=== PATIENT | female | born 1935 | race Caucasian/White ===

== ENCOUNTER 2018-08-28 14:20 | Inpatient (IN) | payer MEDICARE, OTHER ==
--- NOTE | 2018-08-28 14:55 | ED Physician Chart ---
ED Chief Complaint/HPI - Patient Information Date Seen:: 08/28/18 Time Seen:: 14:30 Chief Complaint:: Agitation History of Present Illness:: onset x 2 days of agitation and hostile behavior; no report of trauma, SIs, H/As , S/T, neck pain, cough, C/P, SOB, Abd. Pain, A/N/V/D/C, fever, chills, or urinary s/s Allergies:: Allergies Allergy/AdvReac Type Severity Reaction Status Date / Time iodine Allergy Verified 08/28/18 14:35 Vitals:: Vital Signs - 8 hr 08/28/18 14:36 HR 58 RR 18 BP 125/72 O2 Sat % 96 Historian:: Patient, EMS Review:: Nurse's Note Reviewed, Old Chart Reviewed, EMS run form Reviewed ED Review of Systems - Review of Systems General/Constitutional: No fever, No chills, No weight loss, No weakness, No diaphoresis, No edema, No loss of appetite Skin: No skin lesions, No rash, No bruising Head: No headache, No light-headedness Eyes: No loss of vision, No pain, No diplopia ENT: No earache, No nasal drainage, No sore throat, No tinnitus Neck: No neck pain, No swelling, No thyromegaly, No stiffness, No mass noted Cardio Vascular: No chest pain, No palpitations, No PND, No orthopnea, No edema Pulmonary: No SOB, No cough, No sputum, No wheezing GI: No nausea, No vomiting, No diarrhea, No pain, No melena, No hematochezia, No constipation, No hematemesis G/U: No dysuria, No frequency, No hematuria, No nacturia Warp Preparer: No vaginal discharge, No abnormal vaginal bleed, No contraction Musculoskeletal: No bone or joint pain, No back pain, No muscle pain Endocrine: No polyuria, No polydipsia Psychiatric: Prior psych history, No depression, Anxiety, No suicidal ideation, No homicidal ideation, Auditory hallucination, No visual hallucination Hematopoietic: No bruising, No lymphadenopathy Allergic/Immuno: No urticaria, No angioedema Neurological: No syncope, No focal symptoms, No weakness, No paresthesia, No headache, No seizure, No dizziness, Confusion, No vertigo ED Past Medical History - Past Medical History Obtainable: Yes Past Medical History: HTN, Dyslipidemia, Dementia Family History: HTN Social History: Non Smoker, No Alcohol, No Drug Use, Single, Care Facility Surgical History: None Psychiatricy History: Schizophrenia, Dementia Medication: Reviewed Family Medical History - Family Member Mother History Unknown: Yes ED Physical Exam - Physical Examination General/Constitutional: Awake, Well-developed, well-nourished, Alert, No distress, GCS 15, Non-toxic appearing, Ambulatory Head: Atraumatic Eyes: Lids, conjuctiva normal, PERRL, EOMI Skin: Nl inspection, No rash, No skin lesions, No ecchymosis, Well hydrated, No lymphadenopathy ENMT: External ears, nose nl, TM canals nl, Nasal exam nl, Lips, teeth, gums nl , Oropharynx nl, Tonsils nl Neck: Nontender, Full ROM w/o pain, No JVD, No nuchal rigidity, No bruit, No mass, No stridor Respiratory: Nl effort/Exclusion, Clear to Auscultation, No Wheeze/Rhonchi/Rales Cardio Vascular: RRR, No murmur, gallop, rubs, NL S1 S2, Carotid/Femoral/Distal pulses equal bilaterally GI: No tenderness/rebounding/guarding, No organomegaly, No hernia, Normal BS's, Nondistended, No mass/bruits, No McBurney tenderness : No CVA tenderness Extremities: No tenderness or effusion, Full ROM, normal strength in all extremities, No edema, Normal digits & nails Neuro/Psych: Alert/oriented, DTR's symmetric, Normal sensory exam, Normal motor strength, Judgement/insight normal, Mood normal, Normal gait, No focal deficits Other Neuro/Psych comments:: + Psychomotor Agitation; no SIs; Mood/Affect: Labile Misc: Normal back, No paraspinal tenderness ED Labs/Radiology/EKG Results - Lab Results Comments:: Reviewed - EKG Interpretations EKG Time:: 14:49 Rate & Rhythm: 64; NSR Comments:: LBBB; non-specific st-t changes ED Septic Shock - . Is Septic Shock (SBP<90, OR Lactate>4 mmol\L) present?: No - <6hrs of presentation: Vital Signs: Vital Signs - 8 hr 08/28/18 14:36 HR 58 RR 18 BP 125/72 O2 Sat % 96 ED Reassessment (Disposition) - Reassessment Reassessment Condition:: Improved - Diagnosis Diagnosis:: Agitation; Medical Clearance; UTI; Psychosis; Bipolar Disorder - Aftercare/Follow up Instructions Aftercare/Follow-Up Instructions:: Counseled pt regarding lab results/diagnosis & need follow up, Counseled pt & family regarding lab results/diagnosis & need follow up - Patient Disposition Discharge/Transfer:: Acute Care w/in this hosp Admitted to:: [facility] Condition at Disposition:: Stable, Improved
[2018-08-28 15:07] LABS: % EOSINOPHILS 5.1 % (0.0-5.0); % LYMPHOCYTES 31.2 % (20.0-50.0); % NEUTROPHILS 54.7 % (40.0-80.0); BASOPHILE ABSOLUTE 0.1 Th/cumm (0-0.2); EOSINOPHILE ABSOLUTE 0.3 Th/cmm (0.1-0.4); HEMATOCRIT 40.4 % (41.0-60); HEMOGLOBIN 13.7 gm/dL (12-16); LYMPHOCYTE ABSOLUTE 1.7 Th/cmm (1.5-3.0); MEAN CELL VOLUME 90.7 fl (81-100); MEAN CORPUSCULAR HEMOGLOBIN 30.9 pg (27.0-31.0); MEAN PLATELET VOLUME 7.4 fl; MONOCYTE ABSOLUTE 0.4 Th/cmm (0.3-1.0); NEUTROPHILE ABSOLUTE 2.8 Th/cmm (1.8-8.0); PLATELET COUNT 111 Th/cmm (150-400); RED BLOOD COUNT 4.45 Mil/cmm (3.80-5.20); RED CELL DISTRIBUTION WIDTH 13.5 % (11.5-20.0); WHITE BLOOD COUNT 5.3 Th/cmm (4.8-10.8)
[2018-08-28 15:07] LABS: URINE SOURCE CLEAN C
[2018-08-28 15:12] LABS: URINE BILIRUBIN NEGATIVE (NEGATIVE); URINE BLOOD MODERATE (NEGATIVE); URINE GLUCOSE (UA) NEGATIVE (NEGATIVE); URINE KETONE NEGATIVE (NEGATIVE); URINE LEUKOCYTE ESTERASE SMALL (NEGATIVE); URINE MICROSCOPIC INDICATED? YES; URINE NITRATE NEGATIVE (NEGATIVE); URINE PH 5.5 (4.6 - 8.0); URINE PROTEIN NEGATIVE (NEGATIVE); URINE UROBILINOGEN 0.2 E.U./dL (0.2 - 1.0)
[2018-08-28 15:21] LABS: URINE COLOR YELLOW
[2018-08-28 15:22] LABS: URINE CLARITY HAZY (CLEAR)
[2018-08-28 15:25] LABS: URINE BACTERIA 2+ /hpf (NONE SEEN); URINE EPITHELIAL CELLS MODERATE /lpf (FEW)
[2018-08-28 15:28] LABS: ACETAMINOPHEN < 10.0 ug/mL (10.0-30.0); ALB/GLOB RATIO 1.4 (1.0-1.8); ALBUMIN 3.8 gm/dL (3.7-5.3); ALKALINE PHOSPHATASE 66 U/L (34-104); ANION GAP 12.5 (7.0-16.0); BILIRUBIN,TOTAL 0.3 mg/dL (0.3-1.0); BUN - UREA NITROGEN 32 mg/dL (7-25); CALCIUM SERUM 9.1 mg/dL (8.6-10.3); CARBON DIOXIDE 25.4 mEq/L (21.0-31.0); CHLORIDE 106 mEq/L (98-107); CHOLESTEROL 169 mg/dL (<200); CREATININE - SERUM 1.6 mg/dL (0.6-1.2); GLUCOSE 103 mg/dL (70-105); HDL -HIGH DENSITY LIPOPROTEIN 47 mg/dL (23-92); POTASSIUM SERUM 3.9 mEq/L (3.5-5.1); SALICYLATES (ASPIRIN) < 25.0 mg/L (30.0-100.0); SGOT 17 U/L (13-39); SGPT/ALT 9 U/L (7-52); SODIUM SERUM 140 mEq/L (136-145); TOTAL PROTEIN,SERUM 6.6 gm/dL (6.0-8.3); TRIGLYCERIDES 101 mg/dL (<150)
[2018-08-28 15:30] LABS: AMPHETAMINE URINE NEGATIVE (NEGATIVE); BARBITURATES URINE NEGATIVE (NEGATIVE); BENZODIAZEPINES QUAL URINE NEGATIVE (NEGATIVE); CANNABINOID THC NEGATIVE (NEGATIVE); COCAINE METABOLITE QUAL URINE NEGATIVE (NEGATIVE); METHADONE URINE NEGATIVE (NEGATIVE); METHAMPHETAMINES QUAL URINE NEGATIVE (NEGATIVE); OPIATES (MORPHINE) QUAL. URINE NEGATIVE (NEGATIVE); PHENCYCLIDINE (PCP) URINE NEGATIVE (NEGATIVE); TRICYCLICS (TCA) QUAL. URINE POSITIVE (NEGATIVE)
[2018-08-28 17:45] LABS: CHOLESTEROL 171 mg/dL (<200); HDL -HIGH DENSITY LIPOPROTEIN 46 mg/dL (23-92); TRIGLYCERIDES 103 mg/dL (<150)
[2018-08-28 19:39] VITALS: BP 165/72
[2018-08-28] MEDS ORDERED: Magnesium Hydroxide (MOM) 30 mL UDC PO PRN (19:39)
[2018-08-28] MEDS ORDERED: Maalox 30 mL Cup PO PRN (19:39)
[2018-08-28] MEDS ORDERED: Fleet Enema 135 mL RC PRN (19:58)
[2018-08-29] MEDS: Multivitamin Tab PO SCH (08:34)
--- NOTE | 2018-08-29 13:31 | History & Physical ---
ADMIT DATE: 08/28/2018 CHIEF COMPLAINT: Agitation hypertension. HISTORY OF PRESENT ILLNESS: The patient is an 83-year-old female with a past medical history of hypertension and presented to the ER for agitation and hostile behavior at nursing facility. So, the patient was admitted to Geropsych Unit. As patient has hypertension and a Medicine consultation has been called. On initial evaluation, the patient's vitals were stable with a normal blood pressure. ALLERGIES: IODINE. PAST MEDICAL HISTORY: Includes: 1. Hypertension. 2. Dyslipidemia. 3. Dementia. FAMILY HISTORY: Hypertension. SOCIAL HISTORY: The patient lives at a care facility. The patient is single. No alcohol, no drugs, no smoking. PAST SURGICAL HISTORY: Not available. PSYCHIATRIC HISTORY: Schizophrenia and dementia. MEDICATIONS: As per medication reconciliation sheet. Current medications include Tylenol, Maalox, Norvasc 5 mg p.o. daily, Dulcolax 10 mg p.o. daily, vitamin D3, Colace, Motrin, Ativan, milk of magnesia, Namenda 10 mg twice a day, Lopressor 25 mg twice a day, multivitamin, nitroglycerin, Seroquel, Fleet enema and Ambien. The patient was also taking nitrofurantoin, which was stopped. REVIEW OF SYSTEMS: GENERAL: The patient has no fever, no chills. HEENT: No diplopia, no photophobia, no sore throat. RESPIRATORY: No cough, no shortness of breath. CARDIOVASCULAR: No chest pain or palpitation. GASTROINTESTINAL: No nausea, no vomiting, no diarrhea, no constipation. GENITOURINARY: No dysuria. NEUROLOGIC: No headache, no dizziness, no focal weakness. PHYSICAL EXAMINATION: VITAL SIGNS: Shows temperature is 98.6 degrees Fahrenheit, pulse 70, respiration is 19, blood pressure 122/73. GENERAL: Pleasant, comfortable lying in the bed, not in acute distress. HEENT: Head is normocephalic, atraumatic. Oral cavity moist, pink tongue. NECK: Supple, no JVD, no carotid bruit. Trachea midline. CHEST: Bilateral breath sounds. No crackles or wheezing. HEART: S1, S2 within normal limits. Regular rhythm. No murmur, no gallop. ABDOMEN: Soft, nontender, nondistended. Bowel sounds present. EXTREMITIES: No cyanosis, no clubbing, no edema. NEUROLOGICAL: Alert and awake, communicates well. Speech is clear. LABORATORY DATA: Current lab shows WBC of 5300, hemoglobin 13.7, hematocrit 40.4, platelets are 111,000, neutrophils 54.7%. Sodium is 140, potassium 3.9, chloride 106, bicarbonate is 25, BUN is 32, and creatinine 1.6, glucose is 103. Urinalysis hazy urine with moderate blood, small leukoesterase, WBC 6-10 and 2+ bacteria. IMPRESSION: 1. Hypertension, controlled. 2. Azotemia. Baseline creatinine not available at this moment. On 02/16/2018, her creatinine was 1.3. 3. Psychosis, agitation as per the psych consultation. 4. Dementia. 5. Schizophrenia. RECOMMENDATIONS: Check RPR. Vitamin B12. We will check RPR, vitamin B12 level, TSH and ____ screen. Continue antihypertensives. Psychotic and management as per Dr. Saxena. JOB# [id number]
--- NOTE | 2018-08-30 02:23 | Psychiatric Evaluation ---
DATE OF SERVICE: 08/29/2018 REASON FOR ADMISSION: Agitation and refusal of treatment. HISTORY OF PRESENT ILLNESS: This patient is an 83-year-old woman, resident of [place]. Information obtained by directly interviewing the patient as well as reviewing the admission papers. The patient is reported to have been getting easily agitated and throwing things and has been refusing to comply with the medication and hence the patient could not be taken care of at a lower level of care and hence the patient has been sent from [facility] for further stabilization. Review of the chart indicated that the patient has been on 12.5 mg of the Seroquel. During the evaluation, the patient is not providing much of information, but has been screaming and yelling. PAST PSYCHIATRIC HISTORY: Details are not known. MEDICAL HISTORY: Physical examination is requested to be done by Dr. Odom. SUBSTANCE ABUSE HISTORY: None. PHYSICAL OR SEXUAL ABUSE HISTORY: None. LEGAL PROBLEMS: None at this time. STRENGTH AND ASSETS: The patient is motivated. MENTAL STATUS EXAMINATION: The patient is an 83-year-old woman looking her stated age, superficially cooperative. Eye contact is poor. Mood is noted to be irritable. Affect is constricted. The patient has paranoid delusions. Insight and judgment are noted to be impaired. Impulse control is noted to be poor. Coping skills are also noted to be poor. The patient has been screaming and yelling. The patient is alert and aware that she is in the hospital, but attention span and concentration are noted to be very poor at this time. 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 Dementia and behavioral change, secondary trait. AXIS II: None. AXIS III: As per Dr. Odom. IMMEDIATE TREATMENT PLAN: The patient is going to be started on the low dose of the Seroquel and followed up with the supportive therapy. ESTIMATED LENGTH OF STAY: 5-7 days. DISCHARGE CRITERIA: When the patient is no longer a threat to self or others and be able to cope up with the stress. JOB# [id number]
[2018-08-30 06:45] LABS: ANION GAP 12.6 (7.0-16.0); BUN - UREA NITROGEN 30 mg/dL (7-25); CALCIUM SERUM 9.6 mg/dL (8.6-10.3); CARBON DIOXIDE 28.1 mEq/L (21.0-31.0); CHLORIDE 102 mEq/L (98-107); CREATININE - SERUM 1.2 mg/dL (0.6-1.2); GLUCOSE 96 mg/dL (70-105); POTASSIUM SERUM 3.7 mEq/L (3.5-5.1); SODIUM SERUM 139 mEq/L (136-145)
[2018-08-30] MEDS: Multivitamin Tab PO SCH (09:46)
--- NOTE | 2018-08-30 10:13 | Infectious Disease Prog Note ---
Infectious Disease Subjective - Review of Systems Service Date: 08/30/18 Subjective: There is no new change, no fever,. Infectious Disease Objective - Results Result Diagrams: 08/28/18 15:00 08/30/18 06:00 Recent Labs: Laboratory Last Values WBC 5.3 Th/cmm (4.8-10.8) 08/28/18 15:00 RBC 4.45 Mil/cmm (3.80-5.20) 08/28/18 15:00 Hgb 13.7 gm/dL (12-16) 08/28/18 15:00 Hct 40.4 % (41.0-60) L 08/28/18 15:00 MCV 90.7 fl (81-100) 08/28/18 15:00 MCH 30.9 pg (27.0-31.0) 08/28/18 15:00 MCHC Differential 34.0 pg (28.0-36.0) 08/28/18 15:00 RDW 13.5 % (11.5-20.0) 08/28/18 15:00 Plt Count 111 Th/cmm (150-400) L 08/28/18 15:00 MPV 7.4 fl 08/28/18 15:00 Neutrophils % 54.7 % (40.0-80.0) 08/28/18 15:00 Lymphocytes % 31.2 % (20.0-50.0) 08/28/18 15:00 Monocytes % 8.0 % (2.0-10.0) 08/28/18 15:00 Eosinophils % 5.1 % (0.0-5.0) H 08/28/18 15:00 Basophils % 1.0 % (0.0-2.0) 08/28/18 15:00 Sodium 139 mEq/L (136-145) 08/30/18 06:00 Potassium 3.7 mEq/L (3.5-5.1) 08/30/18 06:00 Chloride 102 mEq/L (98-107) 08/30/18 06:00 Carbon Dioxide 28.1 mEq/L (21.0-31.0) 08/30/18 06:00 Anion Gap 12.6 (7.0-16.0) 08/30/18 06:00 BUN 30 mg/dL (7-25) H 08/30/18 06:00 Creatinine 1.2 mg/dL (0.6-1.2) 08/30/18 06:00 Est GFR ( Amer) TNP 08/30/18 06:00 Est GFR (Non-Af Amer) TNP 08/30/18 06:00 BUN/Creatinine Ratio 25.0 08/30/18 06:00 Glucose 96 mg/dL (70-105) 08/30/18 06:00 Calcium 9.6 mg/dL (8.6-10.3) 08/30/18 06:00 Total Bilirubin 0.3 mg/dL (0.3-1.0) 08/28/18 15:00 AST 17 U/L (13-39) 08/28/18 15:00 ALT 9 U/L (7-52) 08/28/18 15:00 Alkaline Phosphatase 66 U/L (34-104) 08/28/18 15:00 Troponin I 0.02 ng/mL (0.01-0.05) 08/28/18 15:00 Total Protein 6.6 gm/dL (6.0-8.3) 08/28/18 15:00 Albumin 3.8 gm/dL (3.7-5.3) 08/28/18 15:00 Globulin 2.8 gm/dL 08/28/18 15:00 Albumin/Globulin Ratio 1.4 (1.0-1.8) 08/28/18 15:00 Triglycerides 103 mg/dL (<150) 08/28/18 15:00 Cholesterol 171 mg/dL (<200) 08/28/18 15:00 LDL Cholesterol Direct 117 mg/dL (75-193) 08/28/18 15:00 HDL Cholesterol 46 mg/dL (23-92) 08/28/18 15:00 TSH 1.92 uIU/ml (0.34-5.60) 08/28/18 15:00 Urine Source CLEAN C 08/28/18 14:35 Urine Color YELLOW 08/28/18 14:35 Urine Clarity HAZY (CLEAR) 08/28/18 14:35 Urine pH 5.5 (4.6 - 8.0) 08/28/18 14:35 Ur Specific [place] >= 1.030 (1.005-1.030) 08/28/18 14:35 Urine Protein NEGATIVE mg/dL (NEGATIVE) 08/28/18 14:35 Urine Glucose (UA) NEGATIVE mg/dL (NEGATIVE) 08/28/18 14:35 Urine Ketones NEGATIVE mg/dL (NEGATIVE) 08/28/18 14:35 Urine Blood MODERATE (NEGATIVE) H 08/28/18 14:35 Urine Nitrate NEGATIVE (NEGATIVE) 08/28/18 14:35 Urine Bilirubin NEGATIVE (NEGATIVE) 08/28/18 14:35 Urine Urobilinogen 0.2 E.U./dL (0.2 - 1.0) 08/28/18 14:35 Ur Leukocyte Esterase SMALL (NEGATIVE) H 08/28/18 14:35 Urine RBC 2-5 /hpf (0-5) 08/28/18 14:35 Urine WBC 6-10 /hpf (0-5) H 08/28/18 14:35 Ur Epithelial Cells MODERATE /lpf (FEW) 08/28/18 14:35 Urine Bacteria 2+ /hpf (NONE SEEN) H 08/28/18 14:35 Salicylates < 25.0 mg/L (30.0-100.0) L 08/28/18 15:00 Urine Opiates Screen NEGATIVE (NEGATIVE) 08/28/18 14:35 Urine Methadone Screen NEGATIVE (NEGATIVE) 08/28/18 14:35 Acetaminophen < 10.0 ug/mL (10.0-30.0) L 08/28/18 15:00 Ur Barbiturates Screen NEGATIVE (NEGATIVE) 08/28/18 14:35 Ur Tricyclics Screen POSITIVE (NEGATIVE) H 08/28/18 14:35 Ur Phencyclidine Scrn NEGATIVE (NEGATIVE) 08/28/18 14:35 Amphetamines Screen NEGATIVE (NEGATIVE) 08/28/18 14:35 U Methamphetamines Scrn NEGATIVE (NEGATIVE) 08/28/18 14:35 U Benzodiazepines Scrn NEGATIVE (NEGATIVE) 08/28/18 14:35 U Cocaine Metab Screen NEGATIVE (NEGATIVE) 08/28/18 14:35 U Cannabinoids Screen NEGATIVE (NEGATIVE) 08/28/18 14:35 Ethyl Alcohol < 10 mg/dL (0-10) 08/28/18 15:00 RPR NONREACTIVE (NONREACTIVE) 08/28/18 15:00 HIV 1&2 Antibody Screen NEGATIVE (NEG) 08/30/18 06:00 - Physical Exam Vitals and I&O: Vital Signs Temp 97 F 08/29/18 20:00 Pulse 85 08/30/18 09:47 Resp 19 08/29/18 20:00 BP 164/69 08/30/18 09:47 Pulse Ox 95 08/29/18 20:00 Intake & Output 08/29/18 08/30/18 08/30/18 18:59 06:59 18:59 Intake Total 120 Balance 120 Intake: Oral 120 Other: # Voids 3 Active Medications: Current Medications Acetaminophen (Tylenol) 650 mg PO Q4HR PRN PRN Reason: Mild Pain / Temp above 100 Stop: 10/27/18 19:38 Acetaminophen (Tylenol) 325 mg PO Q4HR PRN PRN Reason: Fever > 101 Stop: 10/27/18 19:57 Al Hydrox/Mg Hydrox/Simethicone (Maalox) 30 ml PO Q4HR PRN PRN Reason: GI DISTRESS Stop: 10/27/18 19:38 Amlodipine Besylate (Norvasc) 5 mg PO DAILY [facility] Stop: 10/28/18 08:59 Last Admin: 08/30/18 09:45 Dose: 5 mg Bisacodyl (Dulcolax 10 Mg Supp) 10 mg RC DAILY [facility] Stop: 10/28/18 08:59 Last Admin: 08/30/18 09:44 Dose: Not Given Cholecalciferol (Vitamin D3) 1,000 iu PO DAILY [facility] Stop: 10/28/18 08:59 Last Admin: 08/30/18 09:45 Dose: 1,000 iu Docusate Sodium (Colace) 100 mg PO DAILY [facility] Stop: 10/28/18 08:59 Last Admin: 08/30/18 09:45 Dose: 100 mg Ibuprofen (Motrin) 400 mg PO BID [facility] Stop: 10/28/18 08:59 Last Admin: 08/30/18 09:46 Dose: Not Given Lorazepam (Ativan) 0.5 mg PO Q4HR PRN; Protocol PRN Reason: Anxiety Stop: 09/27/18 19:38 Magnesium Hydroxide (Milk Of Magnesia) 30 ml PO HS PRN PRN Reason: Constipation Memantine (Namenda) 10 mg PO BID [facility] Stop: 10/28/18 08:59 Last Admin: 08/30/18 09:46 Dose: 10 mg Metoprolol Tartrate (Lopressor) 25 mg PO BID [facility] Stop: 10/28/18 08:59 Last Admin: 08/30/18 09:47 Dose: 25 mg Multivitamins/Vitamin C (Theragran) 1 tab PO DAILY [facility] Stop: 10/28/18 08:59 Last Admin: 08/30/18 09:46 Dose: 1 tab Nitroglycerin (Nitrostat) 0.4 mg SL Q5MIN PRN PRN Reason: Chest Pain Stop: 10/27/18 19:57 Quetiapine Fumarate (Seroquel) 12.5 mg PO DAILY [facility]; Protocol Stop: 10/28/18 08:59 Last Admin: 08/30/18 09:48 Dose: 12.5 mg Sodium Phosphate (Fleet Enema) 135 ml RC Q48HR PRN PRN Reason: Constipation Stop: 10/27/18 19:57 Zolpidem Tartrate (Ambien) 5 mg PO HS PRN PRN Reason: Insomnia Last Admin: 08/29/18 20:32 Dose: 5 mg General: no acute distress, well developed, well nourished HEENT: atraumatic, normocephalic, PERRLA, EOMI Neck: supple, no thyromegaly Cardiovascular: S1S2, regular Lungs: clear to auscultation bilaterally, clear to percussion Abdomen: soft, no tender, no distended, no mass Extremities: no cyanosis, no clubbing, no edema Neurological: awake, alert, oriented Skin: intact Infectious Disease Assmt/Plan - Assessment Assessment: 1. Hypertension, uncontrolled. 2. Azotemia. improved. 3. Psychosis, agitation as per the psych consultation. 4. Dementia. 5. Schizophrenia. - Plan Plan: increase the dose of metoprolol
--- NOTE | 2018-08-30 13:46 | Diagnostic Imaging Report ---
Renal ultrasound HISTORY: Pain The right kidney is diminished in size (7.7 x 3.9 x 4.6 cm). No focal lesions. No hydronephrosis. The left kidney is decreased in size (8.3 x 4.7 x 5.2 cm). A 2.9 cm sonolucent lesion is noted in the upper mid cortex consistent with a cyst. No hydronephrosis. No intraluminal abnormality seen within the urinary bladder. IMPRESSION: 1. Decreased renal size is bilaterally 2. Left renal cyst
--- NOTE | 2018-08-30 15:53 | Progress Notes ---
DATE: 08/30/2018 SUBJECTIVE: Staff was spoken to. The patient is interviewed. Mood is noted to be irritable. Affect is constricted. The patient has been having difficult time to cope with the stress. No side effects to the medications are noted. The patient is isolative and withdrawn today and the patient is reporting that she was not able to sleep well last night and the patient is currently paranoid and has been displaying poor. The short-term as well as long-term memory deficits and hence and the patient has been currently on the Namenda and Aricept and the patient is also placed on 12.5 mg of the Seroquel to help the patient with the agitation. ASSESSMENT: The patient is still psychotic and impulsive. PLAN: To continue the patient with the supportive therapy and followup. JOB# [id number]
--- NOTE | 2018-08-31 03:54 | Consultation ---
DATE OF CONSULTATION: 08/30/2018 REFERRING PHYSICIAN: Devang Saxena MD TYPE OF CONSULTATION: Psychology. HISTORY OF PRESENT ILLNESS: The patient is an 83-year-old female. The patient is a resident of [place]. The following is by review of the medical record and by the patient's self-report. The patient is being admitted due to increased agitation as well as refusal of treatment. According to the staff at the patient's facility, the patient had been getting easily agitated and throwing things and refusing to comply with medication. The patient also has exhibited yelling episodes. Upon interview, the patient is not providing much information and is not making much sense. The patient did not answer questions about suicidal ideation, plan or intention. PAST MEDICAL HISTORY: Please see history and physical by Dr. Odom. PAST PSYCHIATRIC HISTORY: Records are unavailable. Details are unknown. The patient is under the care of a Psychiatrist at her placement. SUBSTANCE ABUSE HISTORY: The patient did not answer these questions. PSYCHOSOCIAL HISTORY: The patient did not answer questions about occupational or educational history or sabianism affiliation. The patient did not answer questions about history of physical or sexual abuse or current legal problems. The patient did not answer questions about family members or family relationships or others involved in her care. MENTAL STATUS EXAMINATION: The patient appears to be her stated age. The patient's attitude is guarded. Eye contact is poor. Speech is loud and then intermittently mute. Mood is irritable. Affect is constricted. Thought process shows to be confused. There is evidence that the patient may be experiencing paranoid delusions. The patient denied any auditory or visual hallucinations. The patient declined to answer questions about suicidal ideation, plan or intention. The patient's behavior has been difficult to redirect on the unit. Impulse control is inadequate. Concentration is poor. The patient did not participate in the memory assessment. Sensorium is alert and oriented to self and place only. The patient did not participate in the interpretation of proverbs. Insight is poor. Judgment is impaired. DIAGNOSTIC IMPRESSION: AXIS I: 1. Psychotic disorder, not otherwise specified. 2. Dementia with behavioral disturbance. AXIS II: Deferred. AXIS III: Per Dr. Odom. TREATMENT PLAN: The patient has been seen by Dr. Saxena for psychiatric evaluation and for the management of the patient's psychotropic medications. We will provide supportive psychotherapy to include reality orientation, differentiation and integration. We will provide motivational enhancement for the patient to become compliant and stay compliant with all aspects of her care and treatment. We will provide de-escalation and limit setting. We will encourage the patient to be able to demonstrate emotional and self-regulation prior to her discharge. We will provide stress management to assist the patient in increasing her frustration tolerance. We will provide coping strategies for phase of life issues as well. Thank you, Dr. Saxena, for this consult and the opportunity to participate in this patient's care. JOB# [id number]
[2018-08-31] MEDS: Multivitamin Tab PO SCH (08:48)
--- NOTE | 2018-08-31 11:43 | Infectious Disease Prog Note ---
Infectious Disease Subjective - Review of Systems Service Date: 08/31/18 Subjective: There is no new change, no fever,. Infectious Disease Objective - Results Result Diagrams: 08/28/18 15:00 08/30/18 06:00 Recent Labs: Laboratory Last Values WBC 5.3 Th/cmm (4.8-10.8) 08/28/18 15:00 RBC 4.45 Mil/cmm (3.80-5.20) 08/28/18 15:00 Hgb 13.7 gm/dL (12-16) 08/28/18 15:00 Hct 40.4 % (41.0-60) L 08/28/18 15:00 MCV 90.7 fl (81-100) 08/28/18 15:00 MCH 30.9 pg (27.0-31.0) 08/28/18 15:00 MCHC Differential 34.0 pg (28.0-36.0) 08/28/18 15:00 RDW 13.5 % (11.5-20.0) 08/28/18 15:00 Plt Count 111 Th/cmm (150-400) L 08/28/18 15:00 MPV 7.4 fl 08/28/18 15:00 Neutrophils % 54.7 % (40.0-80.0) 08/28/18 15:00 Lymphocytes % 31.2 % (20.0-50.0) 08/28/18 15:00 Monocytes % 8.0 % (2.0-10.0) 08/28/18 15:00 Eosinophils % 5.1 % (0.0-5.0) H 08/28/18 15:00 Basophils % 1.0 % (0.0-2.0) 08/28/18 15:00 Sodium 139 mEq/L (136-145) 08/30/18 06:00 Potassium 3.7 mEq/L (3.5-5.1) 08/30/18 06:00 Chloride 102 mEq/L (98-107) 08/30/18 06:00 Carbon Dioxide 28.1 mEq/L (21.0-31.0) 08/30/18 06:00 Anion Gap 12.6 (7.0-16.0) 08/30/18 06:00 BUN 30 mg/dL (7-25) H 08/30/18 06:00 Creatinine 1.2 mg/dL (0.6-1.2) 08/30/18 06:00 Est GFR ( Amer) TNP 08/30/18 06:00 Est GFR (Non-Af Amer) TNP 08/30/18 06:00 BUN/Creatinine Ratio 25.0 08/30/18 06:00 Glucose 96 mg/dL (70-105) 08/30/18 06:00 Calcium 9.6 mg/dL (8.6-10.3) 08/30/18 06:00 Total Bilirubin 0.3 mg/dL (0.3-1.0) 08/28/18 15:00 AST 17 U/L (13-39) 08/28/18 15:00 ALT 9 U/L (7-52) 08/28/18 15:00 Alkaline Phosphatase 66 U/L (34-104) 08/28/18 15:00 Troponin I 0.02 ng/mL (0.01-0.05) 08/28/18 15:00 Total Protein 6.6 gm/dL (6.0-8.3) 08/28/18 15:00 Albumin 3.8 gm/dL (3.7-5.3) 08/28/18 15:00 Globulin 2.8 gm/dL 08/28/18 15:00 Albumin/Globulin Ratio 1.4 (1.0-1.8) 08/28/18 15:00 Triglycerides 103 mg/dL (<150) 08/28/18 15:00 Cholesterol 171 mg/dL (<200) 08/28/18 15:00 LDL Cholesterol Direct 117 mg/dL (75-193) 08/28/18 15:00 HDL Cholesterol 46 mg/dL (23-92) 08/28/18 15:00 TSH 1.92 uIU/ml (0.34-5.60) 08/28/18 15:00 Urine Source CLEAN C 08/28/18 14:35 Urine Color YELLOW 08/28/18 14:35 Urine Clarity HAZY (CLEAR) 08/28/18 14:35 Urine pH 5.5 (4.6 - 8.0) 08/28/18 14:35 Ur Specific [place] >= 1.030 (1.005-1.030) 08/28/18 14:35 Urine Protein NEGATIVE mg/dL (NEGATIVE) 08/28/18 14:35 Urine Glucose (UA) NEGATIVE mg/dL (NEGATIVE) 08/28/18 14:35 Urine Ketones NEGATIVE mg/dL (NEGATIVE) 08/28/18 14:35 Urine Blood MODERATE (NEGATIVE) H 08/28/18 14:35 Urine Nitrate NEGATIVE (NEGATIVE) 08/28/18 14:35 Urine Bilirubin NEGATIVE (NEGATIVE) 08/28/18 14:35 Urine Urobilinogen 0.2 E.U./dL (0.2 - 1.0) 08/28/18 14:35 Ur Leukocyte Esterase SMALL (NEGATIVE) H 08/28/18 14:35 Urine RBC 2-5 /hpf (0-5) 08/28/18 14:35 Urine WBC 6-10 /hpf (0-5) H 08/28/18 14:35 Ur Epithelial Cells MODERATE /lpf (FEW) 08/28/18 14:35 Urine Bacteria 2+ /hpf (NONE SEEN) H 08/28/18 14:35 Salicylates < 25.0 mg/L (30.0-100.0) L 08/28/18 15:00 Urine Opiates Screen NEGATIVE (NEGATIVE) 08/28/18 14:35 Urine Methadone Screen NEGATIVE (NEGATIVE) 08/28/18 14:35 Acetaminophen < 10.0 ug/mL (10.0-30.0) L 08/28/18 15:00 Ur Barbiturates Screen NEGATIVE (NEGATIVE) 08/28/18 14:35 Ur Tricyclics Screen POSITIVE (NEGATIVE) H 08/28/18 14:35 Ur Phencyclidine Scrn NEGATIVE (NEGATIVE) 08/28/18 14:35 Amphetamines Screen NEGATIVE (NEGATIVE) 08/28/18 14:35 U Methamphetamines Scrn NEGATIVE (NEGATIVE) 08/28/18 14:35 U Benzodiazepines Scrn NEGATIVE (NEGATIVE) 08/28/18 14:35 U Cocaine Metab Screen NEGATIVE (NEGATIVE) 08/28/18 14:35 U Cannabinoids Screen NEGATIVE (NEGATIVE) 08/28/18 14:35 Ethyl Alcohol < 10 mg/dL (0-10) 08/28/18 15:00 RPR NONREACTIVE (NONREACTIVE) 08/28/18 15:00 HIV 1&2 Antibody Screen NEGATIVE (NEG) 08/30/18 06:00 - Physical Exam Vitals and I&O: Vital Signs Temp 98.4 F 08/31/18 06:41 Pulse 68 08/31/18 08:47 Resp 18 08/31/18 11:08 BP 179/63 08/31/18 08:47 Pulse Ox 98 08/31/18 06:41 Intake & Output 08/30/18 08/31/18 08/31/18 18:59 06:59 18:59 Intake Total 1300 240 Balance 1300 240 Intake: Oral 1300 240 Other: # Voids 1 Active Medications: Current Medications Acetaminophen (Tylenol) 650 mg PO Q4HR PRN PRN Reason: Mild Pain / Temp above 100 Stop: 10/27/18 19:38 Acetaminophen (Tylenol) 325 mg PO Q4HR PRN PRN Reason: Fever > 101 Stop: 10/27/18 19:57 Al Hydrox/Mg Hydrox/Simethicone (Maalox) 30 ml PO Q4HR PRN PRN Reason: GI DISTRESS Stop: 10/27/18 19:38 Amlodipine Besylate (Norvasc) 5 mg PO DAILY [facility] Stop: 10/28/18 08:59 Last Admin: 08/31/18 08:47 Dose: 5 mg Bisacodyl (Dulcolax 10 Mg Supp) 10 mg RC DAILY [facility] Stop: 10/28/18 08:59 Last Admin: 08/31/18 08:48 Dose: Not Given Cholecalciferol (Vitamin D3) 1,000 iu PO DAILY [facility] Stop: 10/28/18 08:59 Last Admin: 08/31/18 08:46 Dose: 1,000 iu Docusate Sodium (Colace) 100 mg PO DAILY [facility] Stop: 10/28/18 08:59 Last Admin: 08/31/18 08:48 Dose: 100 mg Ibuprofen (Motrin) 400 mg PO BID [facility] Stop: 10/28/18 08:59 Last Admin: 08/31/18 08:46 Dose: 400 mg Lorazepam (Ativan) 0.5 mg PO Q4HR PRN; Protocol PRN Reason: Anxiety Stop: 09/27/18 19:38 Magnesium Hydroxide (Milk Of Magnesia) 30 ml PO HS PRN PRN Reason: Constipation Memantine (Namenda) 10 mg PO BID [facility] Stop: 10/28/18 08:59 Last Admin: 08/31/18 08:46 Dose: 10 mg Metoprolol Tartrate (Lopressor) 50 mg PO BID [facility] Stop: 10/29/18 16:59 Last Admin: 08/31/18 08:46 Dose: 50 mg Multivitamins/Vitamin C (Theragran) 1 tab PO DAILY [facility] Stop: 10/28/18 08:59 Last Admin: 08/31/18 08:48 Dose: 1 tab Mupirocin (Bactroban Oint) 1 appl TP BID [facility] Stop: 09/04/18 09:01 Last Admin: 08/31/18 08:46 Dose: 1 appl Nitroglycerin (Nitrostat) 0.4 mg SL Q5MIN PRN PRN Reason: Chest Pain Stop: 10/27/18 19:57 Quetiapine Fumarate (Seroquel) 12.5 mg PO DAILY [facility]; Protocol Stop: 10/28/18 08:59 Last Admin: 08/31/18 08:47 Dose: 12.5 mg Sodium Phosphate (Fleet Enema) 135 ml RC Q48HR PRN PRN Reason: Constipation Stop: 10/27/18 19:57 General: no acute distress, well developed, well nourished HEENT: atraumatic, normocephalic, PERRLA, EOMI Neck: supple, no thyromegaly Cardiovascular: S1S2, regular Lungs: clear to auscultation bilaterally, clear to percussion Abdomen: soft, no tender, no distended, no mass Extremities: no cyanosis, no clubbing, no edema Neurological: awake, alert, oriented Infectious Disease Assmt/Plan - Assessment Assessment: 1. Hypertension, uncontrolled. 2. Azotemia. improved. 3. Psychosis, agitation as per the psych consultation. 4. Dementia. 5. Schizophrenia. - Plan Plan: increase the dose of metoprolol
[2018-09-01] MEDS: Multivitamin Tab PO SCH (09:05)
--- NOTE | 2018-09-01 09:24 | Progress Notes ---
DATE: 08/31/2018 PSYCHIATRIC PROGRESS NOTE SUBJECTIVE: Staff was spoken to. The patient is interviewed. Mood is noted to be irritable. Affect is constricted. The patient's coping skills are noted to be very poor. The patient's insight and judgment also noted to be limited. The patient has been placed on 12.5 mg of Seroquel for her irritability and anger. The patient, at this time, is still very paranoid and has been not able to contact for her safety. PLAN: The patient has been able to tolerate 12.5 mg of Seroquel and hence it is decided to increase the dose to 25 mg and follow the patient with supportive therapy. JOB# [id number]
--- NOTE | 2018-09-01 16:39 | Progress Notes ---
DATE: 09/01/2018 SUBJECTIVE: Staff was spoken to. The patient is interviewed. Mood is noted to be irritable. Affect is constricted. The patient is very tearful and crying during the interview. The patient is stating that there was 1 person that came along and gave her a couple of bucks and then took her out and the patient is stating that she is left with only $2 and the person and must be having $25. The patient is not making any sense. The patient is going on a tangent. The patient has paranoid delusions. Insight and judgment at this time are noted to be very much impaired. The patient has been having difficult time. The patient continues to be emotional and tearful. Possibly, the patient is going to be started on low dose of the antidepressant medication tomorrow. JOB# [id number]
--- NOTE | 2018-09-02 03:35 | Progress Notes ---
DATE: 09/02/2018 INFECTIOUS DISEASE PROGRESS NOTE OBJECTIVE: GENERAL: The patient is lying in the bed, in no acute distress. No fever, no chills. HEENT: Head is normocephalic, atraumatic. Oral cavity moist, pink tongue. NECK: Supple. No JVD, no carotid bruit. Trachea in midline. CHEST: Bilateral breath sounds. No crackles or wheezing. HEART: S1, S2 within normal limits. Regular rhythm. No murmur, no gallop. ABDOMEN: Soft, nontender, nondistended. Bowel sounds present. EXTREMITIES: No cyanosis, no clubbing, no edema. NEUROLOGIC: Alert, awake, oriented x 3. LABORATORY DATA: Current lab shows WBC count is 5300, creatinine is 1.2. MRSA screen was positive. IMPRESSION: 1. Methicillin-resistant Staphylococcus aureus colonization. 2. Hypertension. 3. Azotemia, improved. 4. Psychosis. 5. Agitation. 6. Schizophrenia. RECOMMENDATION: Continue metoprolol. JOB# [id number]
[2018-09-02] MEDS: Multivitamin Tab PO SCH (09:10)
--- NOTE | 2018-09-02 20:25 | Progress Notes ---
DATE: 09/02/2018 PSYCHIATRIC PROGRESS NOTE SUBJECTIVE: Staff was spoken to. The patient is interviewed. Mood is noted to be irritable. Affect is constricted. Insight and judgment at this time are noted to be still impaired. Impulse control is noted to be poor. Coping skills are also noted to be poor. The patient has been having difficult time to cope with the stress. The patient had been very tearful yesterday, but today she seems to be resting. No side effects to the medications are noted and the patient, however, needs to be redirected at this time. The patient is currently on the Seroquel 25 mg at bedtime and has been able to tolerate. ASSESSMENT: The patient is still psychotic and confused. PLAN: To continue the patient with supportive therapy and current medications and follow. JOB# [id number]
[2018-09-03] MEDS: Multivitamin Tab PO SCH (09:49)
--- NOTE | 2018-09-04 01:35 | Progress Notes ---
DATE: 09/03/2018 INFECTIOUS DISEASE AND INTERNAL MEDICINE NOTE SUBJECTIVE: The patient lying in the bed, in no acute distress, no fever, no chills. PHYSICAL EXAMINATION: VITAL SIGNS: Temperature is 97.9, pulse 79, respiratory rate 19, and blood pressure 128/75. GENERAL: The patient is comfortable lying in the bed, not in acute distress. HEENT: Head is normocephalic, atraumatic. Oral cavity moist, pink tongue. Eyes: No pallor, no icterus. PERRLA, EOMI. NECK: Supple, no JVD, no carotid bruit. Trachea midline. CHEST: Bilateral breath sounds. No crackles or wheezing. HEART: S1, S2 within normal limits. Regular rhythm. No murmur, no gallop. ABDOMEN: Soft, nontender, nondistended. Bowel sounds present. EXTREMITIES: No cyanosis, no clubbing, no edema. NEUROLOGIC: Alert, awake, and oriented x 3. LABORATORY DATA: None today. ____ was 398 and TSH of 1.92. Urinalysis showed moderate blood, small leukocyte esterase, wbc 6-10, and 2+ bacteria. Urine culture is mixed john paul. MRSA screen is positive for MRSA. IMPRESSION: 1. Methicillin-resistant Staphylococcus aureus colonization. 2. Hypertension, controlled. 3. Azotemia, improved. 4. Psychosis. 5. Agitation. 6. Schizophrenia. RECOMMENDATION AND PLAN: We will continue management of the same. JOB# [id number]
--- NOTE | 2018-09-04 03:19 | Progress Notes ---
DATE: 09/03/2018 SUBJECTIVE: Staff was spoken to. The patient is interviewed. Mood is noted to be irritable. Affect is constricted. Insight and judgment are impaired. Impulse control is noted to be poor. Coping skills are also noted to be very poor. The patient has been having difficult time to cope with the stress. No side effects to the medications are noted at this time. The patient has been becoming very emotional towards the end of the day. ASSESSMENT: The patient is still depressed and impulsive. PLAN: To continue the patient with the supportive therapy and encourage the patient to place concerns rather than act out. JOB# [id number]
[2018-09-04] MEDS: Multivitamin Tab PO SCH (09:18)
--- NOTE | 2018-09-05 01:40 | Progress Notes ---
DATE: 09/04/2018 SUBJECTIVE: The patient is lying in bed in no acute distress. No fever, no chills. OBJECTIVE: VITAL SIGNS: Current vital signs show temperature 98.5, pulse is 65, respirations 19, blood pressure 135/45. GENERAL: The patient is comfortable lying in the bed, not in acute distress. HEENT: Head is normocephalic, atraumatic. CHEST: Clear. HEART: S1, S2 within normal limits. Regular rhythm. ABDOMEN: Soft, nontender, nondistended. Bowel sounds present. EXTREMITIES: No cyanosis, no clubbing, no edema. LABORATORY DATA: Reviewed. IMPRESSION: 1. Methicillin-resistant Staphylococcus aureus colonization. 2. Hypertension. 3. Azotemia, improved. 4. Psychosis. 5. Agitation. 6. Schizophrenia. RECOMMENDATION: Continue same treatment. JOB# [id number]
[2018-09-05] MEDS: Multivitamin Tab PO SCH (08:59)
[2018-09-05] MEDS: Escitalopram Oxalate 5 mg Tab PO SCH (08:59)
--- NOTE | 2018-09-05 09:00 | Progress Notes ---
DATE: 09/04/2018 PSYCHIATRIC PROGRESS NOTE SUBJECTIVE: Staff was spoken to. The patient is interviewed. Mood is noted to be depressed. Affect is constricted. The patient is very tearful today. Insight and judgment at this time are noted to be still impaired. Impulse control is noted to be poor. Coping skills are also noted to be poor. The patient has been having difficult time. The patient, however, has been having both short and long-term memory problems. ASSESSMENT: The patient is still depressed. PLAN: To continue the patient with the supportive therapy and add a low dose of Lexapro to the current regimen and follow the patient with the supportive therapy. JOB# [id number]
--- NOTE | 2018-09-06 05:26 | Progress Notes ---
DATE: 09/05/2018 PSYCHIATRIC PROGRESS NOTE SUBJECTIVE: Staff was spoken to. The patient is interviewed. Mood is noted to be depressed. The patient is isolative and withdrawn. The patient's coping skill are noted to be very poor. No side effects to the medications are noted. The patient is a little bit cleared in the morning, but towards the end of the day the patient has been having the sundowning effect. No side effects to the medications are noted. The patient is currently on 5 mg of the Lexapro in the morning and 25 mg of the Seroquel at night time. ASSESSMENT: The patient is still depressed and psychotic. PLAN: To continue the patient with the supportive therapy and followup. [facility]# [id number]
[2018-09-06] MEDS: Escitalopram Oxalate 5 mg Tab PO SCH (08:54)
[2018-09-06] MEDS: Multivitamin Tab PO SCH (08:55)
--- NOTE | 2018-09-06 17:38 | Infectious Disease Prog Note ---
Infectious Disease Subjective - Review of Systems Service Date: 09/06/18 Subjective: There is no new change, no fever,. Infectious Disease Objective - Results Result Diagrams: 08/28/18 15:00 08/30/18 06:00 Recent Labs: Laboratory Last Values WBC 5.3 Th/cmm (4.8-10.8) 08/28/18 15:00 RBC 4.45 Mil/cmm (3.80-5.20) 08/28/18 15:00 Hgb 13.7 gm/dL (12-16) 08/28/18 15:00 Hct 40.4 % (41.0-60) L 08/28/18 15:00 MCV 90.7 fl (81-100) 08/28/18 15:00 MCH 30.9 pg (27.0-31.0) 08/28/18 15:00 MCHC Differential 34.0 pg (28.0-36.0) 08/28/18 15:00 RDW 13.5 % (11.5-20.0) 08/28/18 15:00 Plt Count 111 Th/cmm (150-400) L 08/28/18 15:00 MPV 7.4 fl 08/28/18 15:00 Neutrophils % 54.7 % (40.0-80.0) 08/28/18 15:00 Lymphocytes % 31.2 % (20.0-50.0) 08/28/18 15:00 Monocytes % 8.0 % (2.0-10.0) 08/28/18 15:00 Eosinophils % 5.1 % (0.0-5.0) H 08/28/18 15:00 Basophils % 1.0 % (0.0-2.0) 08/28/18 15:00 Sodium 139 mEq/L (136-145) 08/30/18 06:00 Potassium 3.7 mEq/L (3.5-5.1) 08/30/18 06:00 Chloride 102 mEq/L (98-107) 08/30/18 06:00 Carbon Dioxide 28.1 mEq/L (21.0-31.0) 08/30/18 06:00 Anion Gap 12.6 (7.0-16.0) 08/30/18 06:00 BUN 30 mg/dL (7-25) H 08/30/18 06:00 Creatinine 1.2 mg/dL (0.6-1.2) 08/30/18 06:00 Est GFR ( Amer) TNP 08/30/18 06:00 Est GFR (Non-Af Amer) TNP 08/30/18 06:00 BUN/Creatinine Ratio 25.0 08/30/18 06:00 Glucose 96 mg/dL (70-105) 08/30/18 06:00 Calcium 9.6 mg/dL (8.6-10.3) 08/30/18 06:00 Total Bilirubin 0.3 mg/dL (0.3-1.0) 08/28/18 15:00 AST 17 U/L (13-39) 08/28/18 15:00 ALT 9 U/L (7-52) 08/28/18 15:00 Alkaline Phosphatase 66 U/L (34-104) 08/28/18 15:00 Troponin I 0.02 ng/mL (0.01-0.05) 08/28/18 15:00 Total Protein 6.6 gm/dL (6.0-8.3) 08/28/18 15:00 Albumin 3.8 gm/dL (3.7-5.3) 08/28/18 15:00 Globulin 2.8 gm/dL 08/28/18 15:00 Albumin/Globulin Ratio 1.4 (1.0-1.8) 08/28/18 15:00 Triglycerides 103 mg/dL (<150) 08/28/18 15:00 Cholesterol 171 mg/dL (<200) 08/28/18 15:00 LDL Cholesterol Direct 117 mg/dL (75-193) 08/28/18 15:00 HDL Cholesterol 46 mg/dL (23-92) 08/28/18 15:00 Vitamin B12 398 pg/mL (232-1245) 08/30/18 06:00 TSH 1.92 uIU/ml (0.34-5.60) 08/28/18 15:00 Urine Source CLEAN C 08/28/18 14:35 Urine Color YELLOW 08/28/18 14:35 Urine Clarity HAZY (CLEAR) 08/28/18 14:35 Urine pH 5.5 (4.6 - 8.0) 08/28/18 14:35 Ur Specific [place] >= 1.030 (1.005-1.030) 08/28/18 14:35 Urine Protein NEGATIVE mg/dL (NEGATIVE) 08/28/18 14:35 Urine Glucose (UA) NEGATIVE mg/dL (NEGATIVE) 08/28/18 14:35 Urine Ketones NEGATIVE mg/dL (NEGATIVE) 08/28/18 14:35 Urine Blood MODERATE (NEGATIVE) H 08/28/18 14:35 Urine Nitrate NEGATIVE (NEGATIVE) 08/28/18 14:35 Urine Bilirubin NEGATIVE (NEGATIVE) 08/28/18 14:35 Urine Urobilinogen 0.2 E.U./dL (0.2 - 1.0) 08/28/18 14:35 Ur Leukocyte Esterase SMALL (NEGATIVE) H 08/28/18 14:35 Urine RBC 2-5 /hpf (0-5) 08/28/18 14:35 Urine WBC 6-10 /hpf (0-5) H 08/28/18 14:35 Ur Epithelial Cells MODERATE /lpf (FEW) 08/28/18 14:35 Urine Bacteria 2+ /hpf (NONE SEEN) H 08/28/18 14:35 Salicylates < 25.0 mg/L (30.0-100.0) L 08/28/18 15:00 Urine Opiates Screen NEGATIVE (NEGATIVE) 08/28/18 14:35 Urine Methadone Screen NEGATIVE (NEGATIVE) 08/28/18 14:35 Acetaminophen < 10.0 ug/mL (10.0-30.0) L 08/28/18 15:00 Ur Barbiturates Screen NEGATIVE (NEGATIVE) 08/28/18 14:35 Ur Tricyclics Screen POSITIVE (NEGATIVE) H 08/28/18 14:35 Ur Phencyclidine Scrn NEGATIVE (NEGATIVE) 08/28/18 14:35 Amphetamines Screen NEGATIVE (NEGATIVE) 08/28/18 14:35 U Methamphetamines Scrn NEGATIVE (NEGATIVE) 08/28/18 14:35 U Benzodiazepines Scrn NEGATIVE (NEGATIVE) 08/28/18 14:35 U Cocaine Metab Screen NEGATIVE (NEGATIVE) 08/28/18 14:35 U Cannabinoids Screen NEGATIVE (NEGATIVE) 08/28/18 14:35 Ethyl Alcohol < 10 mg/dL (0-10) 08/28/18 15:00 RPR NONREACTIVE (NONREACTIVE) 11/27/18 15:00 HIV 1&2 Antibody Screen NEGATIVE (NEG) 08/30/18 06:00 - Physical Exam Vitals and I&O: Vital Signs Temp 97.3 F 09/06/18 14:25 Pulse 62 09/06/18 14:25 Resp 18 09/06/18 14:25 BP 173/75 09/06/18 14:25 Pulse Ox 96 09/06/18 14:25 Intake & Output 09/05/18 09/06/18 09/06/18 18:59 06:59 18:59 Intake Total 800 120 Balance 800 120 Intake: Oral 800 120 Other: # Voids 3 2 # Bowel Movements 0 Stool Characteristics Soft Formed Brown Active Medications: Current Medications Acetaminophen (Tylenol) 650 mg PO Q4HR PRN PRN Reason: Mild Pain / Temp above 100 Stop: 10/27/18 19:38 Last Admin: 09/02/18 20:37 Dose: 650 mg Acetaminophen (Tylenol) 325 mg PO Q4HR PRN PRN Reason: Fever > 101 Stop: 10/27/18 19:57 Al Hydrox/Mg Hydrox/Simethicone (Maalox) 30 ml PO Q4HR PRN PRN Reason: GI DISTRESS Stop: 10/27/18 19:38 Amlodipine Besylate (Norvasc) 5 mg PO DAILY [facility] Stop: 10/28/18 08:59 Last Admin: 09/06/18 08:56 Dose: Not Given Bisacodyl (Dulcolax 10 Mg Supp) 10 mg RC DAILY [facility] Stop: 10/28/18 08:59 Last Admin: 09/06/18 08:56 Dose: Not Given Cholecalciferol (Vitamin D3) 1,000 iu PO DAILY [facility] Stop: 10/28/18 08:59 Last Admin: 09/06/18 08:55 Dose: 1,000 iu Docusate Sodium (Colace) 100 mg PO DAILY [facility] Stop: 10/28/18 08:59 Last Admin: 09/06/18 08:54 Dose: 100 mg Escitalopram Oxalate (Lexapro) 5 mg PO DAILY [facility]; Protocol Stop: 11/04/18 08:59 Last Admin: 09/06/18 08:54 Dose: 5 mg Ibuprofen (Motrin) 400 mg PO BID [facility] Stop: 10/28/18 08:59 Last Admin: 09/06/18 17:04 Dose: Not Given Lorazepam (Ativan) 0.5 mg PO Q4HR PRN; Protocol PRN Reason: Anxiety Stop: 09/27/18 19:38 Last Admin: 09/04/18 20:52 Dose: 0.5 mg Magnesium Hydroxide (Milk Of Magnesia) 30 ml PO HS PRN PRN Reason: Constipation Memantine (Namenda) 10 mg PO BID [facility] Stop: 10/28/18 08:59 Last Admin: 09/06/18 17:05 Dose: Not Given Metoprolol Tartrate (Lopressor) 50 mg PO BID [facility] Stop: 10/29/18 16:59 Last Admin: 09/06/18 17:05 Dose: Not Given Multivitamins/Vitamin C (Theragran) 1 tab PO DAILY [facility] Stop: 10/28/18 08:59 Last Admin: 09/06/18 08:55 Dose: 1 tab Nitroglycerin (Nitrostat) 0.4 mg SL Q5MIN PRN PRN Reason: Chest Pain Stop: 10/27/18 19:57 Quetiapine Fumarate (Seroquel) 25 mg PO DAILY [facility]; Protocol Stop: 10/31/18 08:59 Last Admin: 09/06/18 08:54 Dose: 25 mg Sodium Phosphate (Fleet Enema) 135 ml RC Q48HR PRN PRN Reason: Constipation Stop: 10/27/18 19:57 General: no acute distress, well developed, well nourished HEENT: atraumatic, normocephalic, PERRLA, EOMI, moist mucous membrane Neck: supple, no thyromegaly Cardiovascular: S1S2, regular Lungs: clear to auscultation bilaterally, clear to percussion Abdomen: soft, no tender, no distended, no rebound Extremities: no cyanosis, no clubbing, no edema Neurological: awake, alert, oriented Skin: intact Infectious Disease Assmt/Plan - Assessment Assessment: 1. Hypertension, uncontrolled. 2. Azotemia. improved. 3. Psychosis, agitation as per the psych consultation. 4. Dementia. 5. Schizophrenia. - Plan Plan: cpm. Nutritional Asmnt/Malnutr-PDOC - Dietary Evaluation Malnutrition Findings (Please click <Entered> for more info): Nutritional Asmnt/Malnutrition Start: 08/31/18 14: 07 Text: Status: Complete Freq: Protocol: Document 08/31/18 14:07 DYANG (Rec: 08/31/18 14:20 [email or web address]) Nutritional Asmnt/Malnutrition Patient General Information Nutritional Screening Moderate Risk Diagnosis agitation Pertinent Medical Hx/Surgical Hx HTN, dyslipidemia, dementia, schizophrenia Subjective Information Pt eating lunch in rec room during visit. Pt states her meals are good and needs no changes. Nursing noted PO intake: 75%. Current Diet Order/ Nutrition Support regular, RIVERA Pertinent Medications dulcolax, Vit D3, colace, theragran, seroquel Pertinent Labs 08/30: BUN 30, Cr 1.2 08/29: BUN 32, Cr 1.6 Nutritional Hx/Data Height 1.52 m Height (Calculated Centimeters) 152.4 Current Weight (lbs) 65.771 kg Weight (Calculated Kilograms) 65.8 Weight (Calculated Grams) 46121.9 [place] Body Weight 100 lb Body Mass Index (BMI) 28.3 Weight Status Overweight GI Symptoms GI Symptoms None Last BM none noted Difficult in: None Food Allergies No Skin Integrity/Comment: intact, bharati 19 Current %PO Good (75-100%) Estimated Nutritional Goals BEE in Kcals: Using Current wt Calories/Kcals/Kg 23-27 Kcals Calculated 1732-4994 Protein: Using Current wt Protein g/k.8-1 monitor renal labs Protein Calculated 53-66 g Fluid: ml 1580-9689 (1 ml/kcal) Nutritional Problem No current Nutrition Prob Problem no nutrition dx at this time Malnutrition Alert Is there a minimum of two criteria No selected? Query Text:Check all the applicable criteria. A minimum of two criteria are recommended for diagnosis of either severe or non-severe malnutrition. Malnutrition Related to Morbid Obesity Malnutrition related to morbid obesity No Intervention/Recommendation Comments 1. Continue with regular, [place] diet as ordered. If BUN continue elevated, will consider limit protein intake. 2. Monitor PO intake, wt, skin integrity and nutrition related labs 3. F/U as low risk in 7 days, 09/07 Expected Outcomes/Goals Expected Outcomes/Goals 1. PO intake to meet at least 75% of all meals. 2. Wt stability, skin to remain intact, and nutrition related labs to approach normal limits reviewed by Polina Zayas RD
[2018-09-07] MEDS: Multivitamin Tab PO SCH (08:36)
[2018-09-07] MEDS: Escitalopram Oxalate 5 mg Tab PO SCH (09:03)
--- NOTE | 2018-09-07 11:56 | Progress Notes ---
DATE: 09/06/2018 PSYCHIATRIC PROGRESS NOTE PROGRESS ON THE UNIT: Staff was spoken to. The patient is interviewed. Mood is noted to be anxious. The patient is isolative and withdrawn. Coping skills are noted to be poor. The patient has been tearful at times and the patient has been having acute mood swings. No side effects to the medications are noted. The patient is able to tolerate the Lexapro. ASSESSMENT: The patient is still depressed. PLAN: To continue the patient with supportive therapy and follow up. [facility]# [id number]
[2018-09-08] MEDS: Multivitamin Tab PO SCH (09:56)
[2018-09-08] MEDS: Escitalopram Oxalate 5 mg Tab PO SCH (09:56)
--- NOTE | 2018-09-08 12:18 | Progress Notes ---
DATE: 09/07/2018 PSYCHIATRIC PROGRESS NOTE SUBJECTIVE: Staff was spoken to. The patient is interviewed. Mood is noted to be depressed. Affect is constricted. Insight and judgment at this time are noted to be still impaired. Impulse control is noted to be limited. Coping skills are noted to be limited. The patient is isolative and withdrawn. She continues to be demented and confused and goes on a tangent. She talks nonsensically. The patient is currently placed on Lexapro 5 mg and Seroquel 25 9mg at bedtime. The patient has been able to tolerate the medications. No side effects to the medications are noted. ASSESSMENT: The patient is still psychotic, depressed, and demented. PLAN: To continue the patient with the current medications and follow up. [facility]# [id number]
--- NOTE | 2018-09-08 14:40 | Progress Notes ---
DATE: 09/08/2018 SUBJECTIVE: Staff was spoken to. The patient is interviewed. Mood is noted to be irritable. Affect is constricted. The patient is still isolative and withdrawn. Insight and judgment are noted to be still impaired. Impulse control is noted to be limited. The patient has been having the crying spells. No side effects to the medications are noted. ASSESSMENT: The patient is still depressed. PLAN: To continue the patient with the supportive therapy, I encouraged the patient to verbalize the concerns rather than to act out. JOB# [id number]
[2018-09-09] MEDS: Escitalopram Oxalate 5 mg Tab PO SCH (09:24)
[2018-09-09] MEDS: Multivitamin Tab PO SCH (09:25)
--- NOTE | 2018-09-09 22:06 | Infectious Disease Prog Note ---
Infectious Disease Subjective - Review of Systems Service Date: 09/09/18 Subjective: There is no new change, no fever,. Infectious Disease Objective - Results Result Diagrams: 08/28/18 15:00 08/30/18 06:00 Recent Labs: Laboratory Last Values WBC 5.3 Th/cmm (4.8-10.8) 08/28/18 15:00 RBC 4.45 Mil/cmm (3.80-5.20) 08/28/18 15:00 Hgb 13.7 gm/dL (12-16) 08/28/18 15:00 Hct 40.4 % (41.0-60) L 08/28/18 15:00 MCV 90.7 fl (81-100) 08/28/18 15:00 MCH 30.9 pg (27.0-31.0) 08/28/18 15:00 MCHC Differential 34.0 pg (28.0-36.0) 08/28/18 15:00 RDW 13.5 % (11.5-20.0) 08/28/18 15:00 Plt Count 111 Th/cmm (150-400) L 08/28/18 15:00 MPV 7.4 fl 08/28/18 15:00 Neutrophils % 54.7 % (40.0-80.0) 08/28/18 15:00 Lymphocytes % 31.2 % (20.0-50.0) 08/28/18 15:00 Monocytes % 8.0 % (2.0-10.0) 08/28/18 15:00 Eosinophils % 5.1 % (0.0-5.0) H 08/28/18 15:00 Basophils % 1.0 % (0.0-2.0) 08/28/18 15:00 Sodium 139 mEq/L (136-145) 08/30/18 06:00 Potassium 3.7 mEq/L (3.5-5.1) 08/30/18 06:00 Chloride 102 mEq/L (98-107) 08/30/18 06:00 Carbon Dioxide 28.1 mEq/L (21.0-31.0) 08/30/18 06:00 Anion Gap 12.6 (7.0-16.0) 08/30/18 06:00 BUN 30 mg/dL (7-25) H 08/30/18 06:00 Creatinine 1.2 mg/dL (0.6-1.2) 08/30/18 06:00 Est GFR ( Amer) TNP 08/30/18 06:00 Est GFR (Non-Af Amer) TNP 08/30/18 06:00 BUN/Creatinine Ratio 25.0 08/30/18 06:00 Glucose 96 mg/dL (70-105) 08/30/18 06:00 Calcium 9.6 mg/dL (8.6-10.3) 08/30/18 06:00 Total Bilirubin 0.3 mg/dL (0.3-1.0) 08/28/18 15:00 AST 17 U/L (13-39) 08/28/18 15:00 ALT 9 U/L (7-52) 08/28/18 15:00 Alkaline Phosphatase 66 U/L (34-104) 08/28/18 15:00 Troponin I 0.02 ng/mL (0.01-0.05) 08/28/18 15:00 Total Protein 6.6 gm/dL (6.0-8.3) 08/28/18 15:00 Albumin 3.8 gm/dL (3.7-5.3) 08/28/18 15:00 Globulin 2.8 gm/dL 08/28/18 15:00 Albumin/Globulin Ratio 1.4 (1.0-1.8) 08/28/18 15:00 Triglycerides 103 mg/dL (<150) 08/28/18 15:00 Cholesterol 171 mg/dL (<200) 08/28/18 15:00 LDL Cholesterol Direct 117 mg/dL (75-193) 08/28/18 15:00 HDL Cholesterol 46 mg/dL (23-92) 08/28/18 15:00 Vitamin B12 398 pg/mL (232-1245) 08/30/18 06:00 TSH 1.92 uIU/ml (0.34-5.60) 08/28/18 15:00 Urine Source CLEAN C 08/28/18 14:35 Urine Color YELLOW 08/28/18 14:35 Urine Clarity HAZY (CLEAR) 08/28/18 14:35 Urine pH 5.5 (4.6 - 8.0) 08/28/18 14:35 Ur Specific [place] >= 1.030 (1.005-1.030) 08/28/18 14:35 Urine Protein NEGATIVE mg/dL (NEGATIVE) 08/28/18 14:35 Urine Glucose (UA) NEGATIVE mg/dL (NEGATIVE) 08/28/18 14:35 Urine Ketones NEGATIVE mg/dL (NEGATIVE) 08/28/18 14:35 Urine Blood MODERATE (NEGATIVE) H 08/28/18 14:35 Urine Nitrate NEGATIVE (NEGATIVE) 08/28/18 14:35 Urine Bilirubin NEGATIVE (NEGATIVE) 08/28/18 14:35 Urine Urobilinogen 0.2 E.U./dL (0.2 - 1.0) 08/28/18 14:35 Ur Leukocyte Esterase SMALL (NEGATIVE) H 08/28/18 14:35 Urine RBC 2-5 /hpf (0-5) 08/28/18 14:35 Urine WBC 6-10 /hpf (0-5) H 08/28/18 14:35 Ur Epithelial Cells MODERATE /lpf (FEW) 08/28/18 14:35 Urine Bacteria 2+ /hpf (NONE SEEN) H 08/28/18 14:35 Salicylates < 25.0 mg/L (30.0-100.0) L 08/28/18 15:00 Urine Opiates Screen NEGATIVE (NEGATIVE) 08/28/18 14:35 Urine Methadone Screen NEGATIVE (NEGATIVE) 08/28/18 14:35 Acetaminophen < 10.0 ug/mL (10.0-30.0) L 08/28/18 15:00 Ur Barbiturates Screen NEGATIVE (NEGATIVE) 08/28/18 14:35 Ur Tricyclics Screen POSITIVE (NEGATIVE) H 08/28/18 14:35 Ur Phencyclidine Scrn NEGATIVE (NEGATIVE) 08/28/18 14:35 Amphetamines Screen NEGATIVE (NEGATIVE) 08/28/18 14:35 U Methamphetamines Scrn NEGATIVE (NEGATIVE) 08/28/18 14:35 U Benzodiazepines Scrn NEGATIVE (NEGATIVE) 08/28/18 14:35 U Cocaine Metab Screen NEGATIVE (NEGATIVE) 08/28/18 14:35 U Cannabinoids Screen NEGATIVE (NEGATIVE) 08/28/18 14:35 Ethyl Alcohol < 10 mg/dL (0-10) 08/28/18 15:00 RPR NONREACTIVE (NONREACTIVE) 11/27/18 15:00 HIV 1&2 Antibody Screen NEGATIVE (NEG) 08/30/18 06:00 - Physical Exam Vitals and I&O: Vital Signs Temp 98 F 09/09/18 20:28 Pulse 54 09/09/18 20:28 Resp 20 09/09/18 20:28 BP 156/81 09/09/18 20:28 Pulse Ox 96 09/09/18 20:28 Intake & Output 09/09/18 09/09/18 09/10/18 06:59 18:59 06:59 Intake Total 480 950 240 Balance 480 950 240 Intake: Oral 480 950 240 Other: # Voids 1 4 1 # Bowel Movements 1 Active Medications: Current Medications Acetaminophen (Tylenol) 650 mg PO Q4HR PRN PRN Reason: Mild Pain / Temp above 100 Stop: 10/27/18 19:38 Last Admin: 09/02/18 20:37 Dose: 650 mg Acetaminophen (Tylenol) 325 mg PO Q4HR PRN PRN Reason: Fever > 101 Stop: 10/27/18 19:57 Al Hydrox/Mg Hydrox/Simethicone (Maalox) 30 ml PO Q4HR PRN PRN Reason: GI DISTRESS Stop: 10/27/18 19:38 Amlodipine Besylate (Norvasc) 5 mg PO DAILY [facility] Stop: 10/28/18 08:59 Last Admin: 09/09/18 09:25 Dose: 5 mg Bisacodyl (Dulcolax 10 Mg Supp) 10 mg RC DAILY [facility] Stop: 10/28/18 08:59 Last Admin: 09/09/18 09:26 Dose: Not Given Cholecalciferol (Vitamin D3) 1,000 iu PO DAILY [facility] Stop: 10/28/18 08:59 Last Admin: 09/09/18 09:23 Dose: 1,000 iu Docusate Sodium (Colace) 100 mg PO DAILY [facility] Stop: 10/28/18 08:59 Last Admin: 09/09/18 09:24 Dose: 100 mg Escitalopram Oxalate (Lexapro) 5 mg PO DAILY [facility]; Protocol Stop: 11/04/18 08:59 Last Admin: 09/09/18 09:24 Dose: 5 mg Ibuprofen (Motrin) 400 mg PO BID [facility] Stop: 10/28/18 08:59 Last Admin: 09/09/18 17:05 Dose: 400 mg Lorazepam (Ativan) 0.5 mg PO Q4HR PRN; Protocol PRN Reason: Anxiety Stop: 09/27/18 19:38 Last Admin: 09/04/18 20:52 Dose: 0.5 mg Magnesium Hydroxide (Milk Of Magnesia) 30 ml PO HS PRN PRN Reason: Constipation Memantine (Namenda) 10 mg PO BID [facility] Stop: 10/28/18 08:59 Last Admin: 09/09/18 17:04 Dose: 10 mg Metoprolol Tartrate (Lopressor) 50 mg PO BID [facility] Stop: 10/29/18 16:59 Last Admin: 09/09/18 17:04 Dose: 50 mg Multivitamins/Vitamin C (Theragran) 1 tab PO DAILY [facility] Stop: 10/28/18 08:59 Last Admin: 09/09/18 09:25 Dose: 1 tab Nitroglycerin (Nitrostat) 0.4 mg SL Q5MIN PRN PRN Reason: Chest Pain Stop: 10/27/18 19:57 Quetiapine Fumarate (Seroquel) 25 mg PO DAILY [facility]; Protocol Stop: 10/31/18 08:59 Last Admin: 09/09/18 09:24 Dose: 25 mg Sodium Phosphate (Fleet Enema) 135 ml RC Q48HR PRN PRN Reason: Constipation Stop: 10/27/18 19:57 General: no acute distress, well developed, well nourished HEENT: atraumatic, normocephalic, PERRLA Neck: supple, no thyromegaly Cardiovascular: S1S2, regular Abdomen: soft, no tender, no distended Extremities: no cyanosis, no clubbing, no edema Neurological: awake, alert, oriented Skin: intact Infectious Disease Assmt/Plan - Assessment Assessment: 1. Hypertension, uncontrolled. 2. Azotemia. improved. 3. Psychosis, agitation as per the psych consultation. 4. Dementia. 5. Schizophrenia. - Plan Plan: cpm. Nutritional Asmnt/Malnutr-PDOC - Dietary Evaluation Malnutrition Findings (Please click <Entered> for more info): Nutritional Asmnt/Malnutrition Start: 08/31/18 14: 07 Text: Status: Complete Freq: Protocol: Document 08/31/18 14:07 VELASQUEZ (Rec: 08/31/18 14:20 [email or web address]) Nutritional Asmnt/Malnutrition Patient General Information Nutritional Screening Moderate Risk Diagnosis agitation Pertinent Medical Hx/Surgical Hx HTN, dyslipidemia, dementia, schizophrenia Subjective Information Pt eating lunch in rec room during visit. Pt states her meals are good and needs no changes. Nursing noted PO intake: 75%. Current Diet Order/ Nutrition Support regular, RIVERA Pertinent Medications dulcolax, Vit D3, colace, theragran, seroquel Pertinent Labs 08/30: BUN 30, Cr 1.2 08/29: BUN 32, Cr 1.6 Nutritional Hx/Data Height 1.52 m Height (Calculated Centimeters) 152.4 Current Weight (lbs) 65.771 kg Weight (Calculated Kilograms) 65.8 Weight (Calculated Grams) 12661.9 [place] Body Weight 100 lb Body Mass Index (BMI) 28.3 Weight Status Overweight GI Symptoms GI Symptoms None Last BM none noted Difficult in: None Food Allergies No Skin Integrity/Comment: intact, bharati 19 Current %PO Good (75-100%) Estimated Nutritional Goals BEE in Kcals: Using Current wt Calories/Kcals/Kg 23-27 Kcals Calculated 3897-1570 Protein: Using Current wt Protein g/k.8-1 monitor renal labs Protein Calculated 53-66 g Fluid: ml 1251-1388 (1 ml/kcal) Nutritional Problem No current Nutrition Prob Problem no nutrition dx at this time Malnutrition Alert Is there a minimum of two criteria No selected? Query Text:Check all the applicable criteria. A minimum of two criteria are recommended for diagnosis of either severe or non-severe malnutrition. Malnutrition Related to Morbid Obesity Malnutrition related to morbid obesity No Intervention/Recommendation Comments 1. Continue with regular, RIVERA diet as ordered. If BUN continue elevated, will consider limit protein intake. 2. Monitor PO intake, wt, skin integrity and nutrition related labs 3. F/U as low risk in 7 days, 09/07 Expected Outcomes/Goals Expected Outcomes/Goals 1. PO intake to meet at least 75% of all meals. 2. Wt stability, skin to remain intact, and nutrition related labs to approach normal limits reviewed by Polina Zayas RD
--- NOTE | 2018-09-09 23:37 | Progress Notes ---
DATE: 09/09/2018 SUBJECTIVE: Staff was spoken to. The patient is interviewed. Mood is noted to be irritable. Affect is constricted. Insight and judgment are noted to be still impaired. Impulse control is noted to be improving. The patient's depression is resolving. No side effects to the medications are noted. The patient's coping skills are noted to be fair at this time. ASSESSMENT: The patient's depression is resolving. PLAN: To continue the patient with the current medications. Follow up with the supportive therapy. [facility]# [id number]
[2018-09-10] MEDS: Escitalopram Oxalate 5 mg Tab PO SCH (08:56)
[2018-09-10] MEDS: Multivitamin Tab PO SCH (08:56)
[2018-09-11] MEDS: Multivitamin Tab PO SCH (08:58)
[2018-09-11] MEDS: Escitalopram Oxalate 5 mg Tab PO SCH (08:58)
--- NOTE | 2018-09-11 21:50 | Progress Notes ---
DATE: 09/11/2018 SUBJECTIVE: Staff was spoken to. The patient is interviewed. Mood is noted to be depressed. Affect is constricted. Insight and judgment are noted to be still impaired. Impulse control seems to be improving. The patient is most of the time to be isolative and withdrawn. No side effects to the medications are noted. ASSESSMENT: The patient is depressed. PLAN: To continue the patient with the supportive therapy and followup. [facility]# [id number]
--- NOTE | 2018-09-11 23:54 | Infectious Disease Prog Note ---
Infectious Disease Subjective - Review of Systems Service Date: 09/11/18 Subjective: There is no new change, no fever,. Infectious Disease Objective - Results Result Diagrams: 08/28/18 15:00 08/30/18 06:00 Recent Labs: Laboratory Last Values WBC 5.3 Th/cmm (4.8-10.8) 08/28/18 15:00 RBC 4.45 Mil/cmm (3.80-5.20) 08/28/18 15:00 Hgb 13.7 gm/dL (12-16) 08/28/18 15:00 Hct 40.4 % (41.0-60) L 08/28/18 15:00 MCV 90.7 fl (81-100) 08/28/18 15:00 MCH 30.9 pg (27.0-31.0) 08/28/18 15:00 MCHC Differential 34.0 pg (28.0-36.0) 08/28/18 15:00 RDW 13.5 % (11.5-20.0) 08/28/18 15:00 Plt Count 111 Th/cmm (150-400) L 08/28/18 15:00 MPV 7.4 fl 08/28/18 15:00 Neutrophils % 54.7 % (40.0-80.0) 08/28/18 15:00 Lymphocytes % 31.2 % (20.0-50.0) 08/28/18 15:00 Monocytes % 8.0 % (2.0-10.0) 08/28/18 15:00 Eosinophils % 5.1 % (0.0-5.0) H 08/28/18 15:00 Basophils % 1.0 % (0.0-2.0) 08/28/18 15:00 Sodium 139 mEq/L (136-145) 08/30/18 06:00 Potassium 3.7 mEq/L (3.5-5.1) 08/30/18 06:00 Chloride 102 mEq/L (98-107) 08/30/18 06:00 Carbon Dioxide 28.1 mEq/L (21.0-31.0) 08/30/18 06:00 Anion Gap 12.6 (7.0-16.0) 08/30/18 06:00 BUN 30 mg/dL (7-25) H 08/30/18 06:00 Creatinine 1.2 mg/dL (0.6-1.2) 08/30/18 06:00 Est GFR ( Amer) TNP 08/30/18 06:00 Est GFR (Non-Af Amer) TNP 08/30/18 06:00 BUN/Creatinine Ratio 25.0 08/30/18 06:00 Glucose 96 mg/dL (70-105) 08/30/18 06:00 Calcium 9.6 mg/dL (8.6-10.3) 08/30/18 06:00 Total Bilirubin 0.3 mg/dL (0.3-1.0) 08/28/18 15:00 AST 17 U/L (13-39) 08/28/18 15:00 ALT 9 U/L (7-52) 08/28/18 15:00 Alkaline Phosphatase 66 U/L (34-104) 08/28/18 15:00 Troponin I 0.02 ng/mL (0.01-0.05) 08/28/18 15:00 Total Protein 6.6 gm/dL (6.0-8.3) 08/28/18 15:00 Albumin 3.8 gm/dL (3.7-5.3) 08/28/18 15:00 Globulin 2.8 gm/dL 08/28/18 15:00 Albumin/Globulin Ratio 1.4 (1.0-1.8) 08/28/18 15:00 Triglycerides 103 mg/dL (<150) 08/28/18 15:00 Cholesterol 171 mg/dL (<200) 08/28/18 15:00 LDL Cholesterol Direct 117 mg/dL (75-193) 08/28/18 15:00 HDL Cholesterol 46 mg/dL (23-92) 08/28/18 15:00 Vitamin B12 398 pg/mL (232-1245) 08/30/18 06:00 TSH 1.92 uIU/ml (0.34-5.60) 08/28/18 15:00 Urine Source CLEAN C 08/28/18 14:35 Urine Color YELLOW 08/28/18 14:35 Urine Clarity HAZY (CLEAR) 08/28/18 14:35 Urine pH 5.5 (4.6 - 8.0) 08/28/18 14:35 Ur Specific [place] >= 1.030 (1.005-1.030) 08/28/18 14:35 Urine Protein NEGATIVE mg/dL (NEGATIVE) 08/28/18 14:35 Urine Glucose (UA) NEGATIVE mg/dL (NEGATIVE) 08/28/18 14:35 Urine Ketones NEGATIVE mg/dL (NEGATIVE) 08/28/18 14:35 Urine Blood MODERATE (NEGATIVE) H 08/28/18 14:35 Urine Nitrate NEGATIVE (NEGATIVE) 08/28/18 14:35 Urine Bilirubin NEGATIVE (NEGATIVE) 08/28/18 14:35 Urine Urobilinogen 0.2 E.U./dL (0.2 - 1.0) 08/28/18 14:35 Ur Leukocyte Esterase SMALL (NEGATIVE) H 08/28/18 14:35 Urine RBC 2-5 /hpf (0-5) 08/28/18 14:35 Urine WBC 6-10 /hpf (0-5) H 08/28/18 14:35 Ur Epithelial Cells MODERATE /lpf (FEW) 08/28/18 14:35 Urine Bacteria 2+ /hpf (NONE SEEN) H 08/28/18 14:35 Salicylates < 25.0 mg/L (30.0-100.0) L 08/28/18 15:00 Urine Opiates Screen NEGATIVE (NEGATIVE) 08/28/18 14:35 Urine Methadone Screen NEGATIVE (NEGATIVE) 08/28/18 14:35 Acetaminophen < 10.0 ug/mL (10.0-30.0) L 08/28/18 15:00 Ur Barbiturates Screen NEGATIVE (NEGATIVE) 08/28/18 14:35 Ur Tricyclics Screen POSITIVE (NEGATIVE) H 08/28/18 14:35 Ur Phencyclidine Scrn NEGATIVE (NEGATIVE) 08/28/18 14:35 Amphetamines Screen NEGATIVE (NEGATIVE) 08/28/18 14:35 U Methamphetamines Scrn NEGATIVE (NEGATIVE) 08/28/18 14:35 U Benzodiazepines Scrn NEGATIVE (NEGATIVE) 08/28/18 14:35 U Cocaine Metab Screen NEGATIVE (NEGATIVE) 08/28/18 14:35 U Cannabinoids Screen NEGATIVE (NEGATIVE) 08/28/18 14:35 Ethyl Alcohol < 10 mg/dL (0-10) 08/28/18 15:00 RPR NONREACTIVE (NONREACTIVE) 11/27/18 15:00 HIV 1&2 Antibody Screen NEGATIVE (NEG) 08/30/18 06:00 - Physical Exam Vitals and I&O: Vital Signs Temp 97.6 F 09/11/18 20:15 Pulse 70 09/11/18 20:15 Resp 20 09/11/18 20:15 BP 109/49 09/11/18 20:15 Pulse Ox 96 09/11/18 20:15 Intake & Output 09/11/18 09/11/18 09/12/18 06:59 18:59 06:59 Intake Total 1200 240 Balance 1200 240 Weight (lbs) 65.771 kg 65.771 kg Intake: Oral 1200 240 Other: # Voids 3 4 3 # Bowel Movements 0 0 0 Weight Source Bedscale Bedscale Active Medications: Current Medications Acetaminophen (Tylenol) 650 mg PO Q4HR PRN PRN Reason: Mild Pain / Temp above 100 Stop: 10/27/18 19:38 Last Admin: 09/02/18 20:37 Dose: 650 mg Al Hydrox/Mg Hydrox/Simethicone (Maalox) 30 ml PO Q4HR PRN PRN Reason: GI DISTRESS Stop: 10/27/18 19:38 Amlodipine Besylate (Norvasc) 5 mg PO DAILY [facility] Stop: 10/28/18 08:59 Last Admin: 09/11/18 09:01 Dose: 5 mg Bisacodyl (Dulcolax 10 Mg Supp) 10 mg RC DAILY [facility] Stop: 10/28/18 08:59 Last Admin: 09/11/18 09:00 Dose: Not Given Cholecalciferol (Vitamin D3) 1,000 iu PO DAILY [facility] Stop: 10/28/18 08:59 Last Admin: 09/11/18 08:59 Dose: 1,000 iu Docusate Sodium (Colace) 100 mg PO DAILY [facility] Stop: 10/28/18 08:59 Last Admin: 09/11/18 08:58 Dose: 100 mg Escitalopram Oxalate (Lexapro) 5 mg PO DAILY [facility]; Protocol Stop: 11/04/18 08:59 Last Admin: 09/11/18 08:58 Dose: 5 mg Ibuprofen (Motrin) 400 mg PO BID [facility] Stop: 10/28/18 08:59 Last Admin: 09/11/18 16:29 Dose: 400 mg Lorazepam (Ativan) 0.5 mg PO Q4HR PRN; Protocol PRN Reason: Anxiety Stop: 09/27/18 19:38 Last Admin: 09/10/18 01:01 Dose: 0.5 mg Magnesium Hydroxide (Milk Of Magnesia) 30 ml PO HS PRN PRN Reason: Constipation Memantine (Namenda) 10 mg PO BID [facility] Stop: 10/28/18 08:59 Last Admin: 09/11/18 16:29 Dose: 10 mg Metoprolol Tartrate (Lopressor) 50 mg PO BID [facility] Stop: 10/29/18 16:59 Last Admin: 09/11/18 16:29 Dose: 50 mg Multivitamins/Vitamin C (Theragran) 1 tab PO DAILY [facility] Stop: 10/28/18 08:59 Last Admin: 09/11/18 08:58 Dose: 1 tab Nitroglycerin (Nitrostat) 0.4 mg SL Q5MIN PRN PRN Reason: Chest Pain Stop: 10/27/18 19:57 Quetiapine Fumarate (Seroquel) 25 mg PO DAILY [facility]; Protocol Stop: 10/31/18 08:59 Last Admin: 09/11/18 08:59 Dose: 25 mg Sodium Phosphate (Fleet Enema) 135 ml RC Q48HR PRN PRN Reason: Constipation Stop: 10/27/18 19:57 General: no acute distress, well developed, well nourished HEENT: atraumatic, normocephalic, PERRLA Neck: supple, no thyromegaly Cardiovascular: S1S2, regular Lungs: no clear to auscultation bilaterally, no clear to percussion Abdomen: soft, no tender, no distended Extremities: no cyanosis, no clubbing, no edema Neurological: awake, alert, oriented Skin: intact Infectious Disease Assmt/Plan - Assessment Assessment: 1. Hypertension, uncontrolled. 2. Azotemia. improved. 3. Psychosis, agitation as per the psych consultation. 4. Dementia. 5. Schizophrenia. - Plan Plan: cpm. Nutritional Asmnt/Malnutr-PDOC - Dietary Evaluation Malnutrition Findings (Please click <Entered> for more info): Nutritional Asmnt/Malnutrition Start: 08/31/18 14: 07 Text: Status: Complete Freq: Protocol: Document 08/31/18 14:07 VELASQUEZ (Rec: 08/31/18 14:20 DYANG [email or web address]) Nutritional Asmnt/Malnutrition Patient General Information Nutritional Screening Moderate Risk Diagnosis agitation Pertinent Medical Hx/Surgical Hx HTN, dyslipidemia, dementia, schizophrenia Subjective Information Pt eating lunch in rec room during visit. Pt states her meals are good and needs no changes. Nursing noted PO intake: 75%. Current Diet Order/ Nutrition Support regular, RVIERA Pertinent Medications dulcolax, Vit D3, colace, theragran, seroquel Pertinent Labs 08/30: BUN 30, Cr 1.2 08/29: BUN 32, Cr 1.6 Nutritional Hx/Data Height 1.52 m Height (Calculated Centimeters) 152.4 Current Weight (lbs) 65.771 kg Weight (Calculated Kilograms) 65.8 Weight (Calculated Grams) 62556.9 [place] Body Weight 100 lb Body Mass Index (BMI) 28.3 Weight Status Overweight GI Symptoms GI Symptoms None Last BM none noted Difficult in: None Food Allergies No Skin Integrity/Comment: intact, bharati 19 Current %PO Good (75-100%) Estimated Nutritional Goals BEE in Kcals: Using Current wt Calories/Kcals/Kg 23-27 Kcals Calculated 0094-7842 Protein: Using Current wt Protein g/k.8-1 monitor renal labs Protein Calculated 53-66 g Fluid: ml 9371-4265 (1 ml/kcal) Nutritional Problem No current Nutrition Prob Problem no nutrition dx at this time Malnutrition Alert Is there a minimum of two criteria No selected? Query Text:Check all the applicable criteria. A minimum of two criteria are recommended for diagnosis of either severe or non-severe malnutrition. Malnutrition Related to Morbid Obesity Malnutrition related to morbid obesity No Intervention/Recommendation Comments 1. Continue with regular, RIVERA diet as ordered. If BUN continue elevated, will consider limit protein intake. 2. Monitor PO intake, wt, skin integrity and nutrition related labs 3. F/U as low risk in 7 days, 09/07 Expected Outcomes/Goals Expected Outcomes/Goals 1. PO intake to meet at least 75% of all meals. 2. Wt stability, skin to remain intact, and nutrition related labs to approach normal limits reviewed by Polina Zayas RD
[2018-09-12] MEDS: Multivitamin Tab PO SCH (09:20)
[2018-09-12] MEDS: Escitalopram Oxalate 5 mg Tab PO SCH (09:21)
--- NOTE | 2018-09-12 23:47 | Progress Notes ---
DATE: 09/12/2018 PSYCHIATRIC PROGRESS NOTE SUBJECTIVE: Staff was spoken to. The patient is interviewed. Mood is noted to be anxious. Affect is appropriate. The patient is not suicidal or homicidal. Insight and judgment are noted to be fair. Impulse control is also noted to be fair. No side effects to the medications are noted. The patient is motivated for treatment on an outpatient basis. The patient is not presenting with any suicidal or homicidal ideation. ASSESSMENT: The patient is stabilizing. PLAN: To discharge the patient to the long term facility for further followup. JOB# [id number]
--- NOTE | 2018-09-16 13:39 | Discharge Summary ---
DATE OF DISCHARGE: 09/12/2018 IDENTIFYING DATA: The patient is an 83-year-old woman[facility] Information obtained by directly interviewing the patient as well as reviewing the admission papers. JUSTIFICATION OF HOSPITALIZATION: The patient is admitted here for her depression and agitation and getting easily agitated, throwing things and refused to comply with the medication. HISTORY OF PRESENT ILLNESS: Please refer to 08/29/2018 dictation. Physical examination was done by Dr. Odom. Blood work done at the hospitalization have been reviewed by him. HOSPITAL COURSE AND RESPONSE TO TREATMENT: The patient has been observed on Inpatient Unit, provided with supportive psychotherapy. The patient also has been provided with the individual counseling with Dr. Kendrick and the patient has been started on the escitalopram, which was gradually increased to 10 mg and the patient has been given the Seroquel 25 mg at bedtime. With these ____ the patient started to do fairly well and the patient has started to mention that she has [facility] because she was comfortable over there and hence the patient was discharged. MENTAL STATUS EXAMINATION AT THE TIME OF DISCHARGE: The patient's mood is noted to be less irritable. Affect is constricted. Insight and judgment are noted to be improving and the patient is motivated for treatment on an outpatient basis. CONDITION: At the time of discharge, appeared to be stable. DIAGNOSES AT THE TIME OF DISCHARGE: AXIS I: Major depressive disorder, recurrent with psychotic symptoms. IB. Dementia and behavioral change secondary trait. AFTERCARE PLAN: The patient is discharged back to the [facility] for further followup. [facility]# [id number]
== END 2018-09-12 15:00 | DRG 885 ==
LOC: ER 14:20 → GERO 17:16
PROVIDERS: ADMIT Psychiatry & Neurology Psychiatry; ATTEND Psychiatry & Neurology Psychiatry
DX: F33.3 Major depressive disorder, recurrent, severe with psychotic symptoms (principal); F03.91 Unspecified dementia, unspecified severity, with behavioral disturbance; N39.0 Urinary tract infection, site not specified; I10 Essential (primary) hypertension; E78.5 Hyperlipidemia, unspecified; R79.89 Other specified abnormal findings of blood chemistry; Z22.322 Carrier or suspected carrier of Methicillin resistant Staphylococcus aureus; Z82.49 Family history of ischemic heart disease and other diseases of the circulatory system; Z91.041 Radiographic dye allergy status
CPT/HCPCS: 36415-UA; 76770-TC; 80048-TC; 80053-TC; 80061-TC; 80307; 80320-TC; 80329-TC; 81001-TC; 82607-90; 83036-90; 84443-TC; 84484-TC; 85025-TC; 86592-TC; 86703-TC; 87086-90; 93005; Z7610